=== PATIENT | male | born 1995 | race Caucasian/White ===

== ENCOUNTER 2024-02-06 02:10 | Emergency (ER) | payer SELFPAY ==
[~2024-02-06] VITALS: Ht 170.2 cm; Wt 81.6 kg
[2024-02-06 02:21] VITALS: BP 146/90; PULSE 88; RESP 18; TEMP 98.2; O2SAT 98
[2024-02-06 05:20] VITALS: BP 138/90; PULSE 86; RESP 18; TEMP 98; O2SAT 98
== END 2024-02-06 05:20 | disposition home or self-care (01) ==
LOC: MED 02:10
DX: S80.02XA Contusion of left knee, initial encounter (principal); F10.129 Alcohol abuse with intoxication, unspecified; Y90.9 Presence of alcohol in blood, level not specified; Y93.39 Activity, other involving climbing, rappelling and jumping off; Y92.89 Other specified places as the place of occurrence of the external cause; Y99.8 Other external cause status
CPT/HCPCS: 73562; 99283